=== PATIENT | male | born 1960 | race Caucasian/White ===

== ENCOUNTER → 2019-06-12 10:37 | Outpatient (CLI) | payer OTHER, SELFPAY ==
--- NOTE | 2019-06-12 10:40 | CA_ITS ---
APPROVED REPORT EXAM: Comprehensive 2D, Doppler, and color-flow Echocardiogram Corn Popper: Myah Alvarez CRT Ht: 6 ft 0 in Wt: 267lbs BSA: 2.41 BP: 141/87 mmHg Indications: Diabetes, CAD, Hyperlipidemia, Hypertension/HDD 2D Dimensions LVOT 2.34 cm (M/F) 1.5-2.5 M-Mode Dimensions RVDd 4.08 cm (0.9-2.6) LVDd 5.87 cm (3.5-5.7) LVDs 4.12 cm (3.5-5.7) IVSd 2.34 cm (0.6-1.1) PWd 0.85 cm (0.6-1.1) EF (Teich) 56.10% FS 29.80% EDV (Teich) 171.20 mL ESV (Teich) 75.10 mL LV Diastology E/A Ratio 1.84 Mitral Valve MV A Velocity 47.00 (40-130 cm/s) Left Ventricle Left atrium is mildly enlarged, left ventricle is normal size, left ventricle wall thickness is upper limit of the normal, there is preserved left ventricular systolic function, visually estimated ejection fraction 55% with no regional wall motion abnormality. Diastolic parameters are within normal range. Right Ventricle Right atrium right ventricular normal size and contractility. Aortic Valve Aortic valve is minimally thickened and fibrosed, there is no aortic stenosis or aortic insufficiency. Mitral Valve Mitral valve is grossly normal, there is mild mitral regurgitation. Tricuspid Valve Tricuspid valve grossly normal, there is mild tricuspid regurgitation, tricuspid regurgitation jet velocity is inadequate for calculation of the right ventricular systolic pressure. Pulmonic Valve Pulmonic valve is poorly visualized. Great Vessels Aortic root is normal size. Pericardium No significant pericardial effusion noted. Conclusion 1. Mildly enlarged left atrium, normal left ventricular size, visually estimated ejection fraction 55% with no regional wall motion abnormality, diastolic parameters are within normal range. 2. Mild mitral and tricuspid regurgitation. 3. No significant pericardial effusion noted. Electronically signed by : Kobe Farley, 06/13/2019 14:44:19
== END ==
PROVIDERS: PCP Family Medicine; Visit Provider Urology
DX: I25.10 Atherosclerotic heart disease of native coronary artery without angina pectoris (principal); E78.49 Other hyperlipidemia; I11.9 Hypertensive heart disease without heart failure; E11.9 Type 2 diabetes mellitus without complications; Z79.84 Long term (current) use of oral hypoglycemic drugs
CPT/HCPCS: 93306